=== PATIENT | male | born 1975 | race Caucasian/White ===

== ENCOUNTER 2019-07-01 18:12 | Inpatient (IN) | payer BC ==
[~2019-07-01] VITALS: Ht 193 cm; Wt 140.6 kg
[2019-07-01 18:23] VITALS: BP_SYST 151
--- NOTE | 2019-07-01 18:27 | NUR ---
Patient triaged and placed in waiting room. VSS and patient appears in no acute distress at this time. Accompanied by mother, awaiting available bed, and MD notified of need for MSE.
[2019-07-01 21:30] LABS: BASOPHILS % (AUTO) 0.6 % (0.0-2.0); EOSINOPHILS # (AUTO) 0.1 K/uL (0.0-0.4); EOSINOPHILS % (AUTO) 1.5 % (0.0-4.0); HEMATOCRIT 41.2 % (36-54); HEMOGLOBIN 14.1 g/dL (14.0-18.0); LYMPHOCYTES # (AUTO) 1.7 K/uL (1.0-5.5); LYMPHOCYTES % (AUTO) 23.9 % (20.5-51.5); MEAN CORPUSCULAR HEMOGLOBIN 32 pg (27-31); MEAN CORPUSCULAR HGB CONC 34 % (32-36); MEAN CORPUSCULAR VOLUME 93 fL (79.0-98.0); MONOCYTES # (AUTO) 0.6 K/uL (0.0-1.0); MONOCYTES % (AUTO) 8.4 % (1.7-9.3); NEUTROPHILS # (AUTO) 4.6 K/uL (1.8-7.7); NEUTROPHILS % (AUTO) 65.6 % (40.0-70.0); PLATELET COUNT (AUTO) 330 K/uL (130-430); RED BLOOD CELL COUNT(AUTO) 4.42 MIL/uL (4.2-6.2); RED CELL DISTRIBUTION WIDTH 13.8 % (9.0-15.0)
[2019-07-01 22:08] LABS: ERYTHROCYTE SEDIMENTATION RATE 33 MM/HR (0-15); PROTHROMBIN TIME 9.9 SECS (9.5-12.5)
[2019-07-01 22:11] LABS: CALCIUM 9.1 mg/dL (8.4-11.0); CREATININE 1.15 mg/dL (0.55-1.30); POTASSIUM 3.7 mmol/L (3.5-5.1)
[2019-07-01 22:18] LABS: ALBUMIN 3.6 g/dL (3.4-4.8); TOTAL BILIRUBIN 0.8 mg/dL (0.0-1.0)
--- NOTE | 2019-07-01 23:28 | NUR ---
Pt ambulatory to bed 8 for evaluation
--- NOTE | 2019-07-01 23:45 | NUR ---
Pt came to the ED for upper back pain. Reports that he had an MRI taken yesterday morning and was referred by his primary for oseomyelitis. Pt states pain radiates through his chest. Pt took ibuprofen daily in the morning. No other complaints/injuries noted. Will cont. to monitor.
--- NOTE | 2019-07-01 23:51 | NUR ---
ER at bedside examining patient.
[2019-07-02] MEDS ORDERED: VANCOMYCIN HCL 1,000 MG in NS 250 ML IV ONE ×2
--- NOTE | 2019-07-02 00:43 | NUR ---
# 20 gauge angiocath placed to rac. Use of asceptic technique. Opsite placed over site. Blood return noted. Flushed with 10 cc of normal saline. No evidence of infiltration noted. Patient tolerated well.
--- NOTE | 2019-07-02 01:01 | NUR ---
Pt went to CT scan via wheelchair,tolerated well. Will cont. to monitor.
[2019-07-02] MEDS ORDERED: IOHEXOL 100 ML IV ONE (01:20)
[2019-07-02] MEDS ORDERED: VANCOMYCIN HCL 1000 MG/VIAL IV ONE (02:02)
[2019-07-02] MEDS ORDERED: ACETAMINOPHEN 325 MG TABLET PO PRN (03:15)
[2019-07-02] MEDS ORDERED: cloNIDine HCL 0.1 MG TABLET PO PRN (03:15)
[2019-07-02] MEDS ORDERED: HYDROcodone/ACETAMIN 5-325 MG TAB (NORCO/ VICODIN) PO PRN (03:15)
--- NOTE | 2019-07-02 03:15 | NUR ---
Patient will be admitted to care of Dr. Worthy . Admitted to Med Surg unit. Dx: possible Osteomyelitis of the spine and hypertension. Patient is a med surg hold.
--- NOTE | 2019-07-02 04:00 | NUR ---
PT resting comfortably in bed, no signs of acute distress. Will cont. to monitor.
--- NOTE | 2019-07-02 04:30 | NUR ---
Called [facility] for bed, unable to take pt .
--- NOTE | 2019-07-02 05:00 | NUR ---
PT resting comfortably in bed, no signs of acute distress. Will cont. to monitor.
--- NOTE | 2019-07-02 06:00 | NUR ---
PT resting comfortably in bed, no signs of acute distress. Will cont. to monitor.
--- NOTE | 2019-07-02 07:07 | NUR ---
Report received from TERRY Franco for continuation of care.
--- NOTE | 2019-07-02 07:42 | NUR ---
Unable to obtain medication list.
--- NOTE | 2019-07-02 08:30 | NUR ---
Patient will be admitted to care of Dr. Worthy. Admitted to medsurg unit. Will go to room 124B. Belongings list completed. Complete and up to date summary report printed. SBAR report to be given at bedside with opportunity for questions.
--- NOTE | 2019-07-02 08:39 | NUR ---
[facility] Licensed nurse present. IV present no signs or symptoms of infiltration.
--- NOTE | 2019-07-02 08:57 | NUR ---
ADMISSION NOTE Received patient from ER via [place], received report from Wojciech STEWART. Patient admitted with diagnosis of possible osteomyelitis of spine and hypertension. Patient oriented to hospital routine, call light, toileting and safety-patient verbalized understanding.
[2019-07-02 09:01] VITALS: BP_SYST 134
--- NOTE | 2019-07-02 09:17 | NUR ---
ID consult: Dr. Nolasco at nurses station and aware of consult.
[2019-07-02] MEDS: IBUPROFEN 800 MG TABLET PO PRN (09:51)
--- NOTE | 2019-07-02 10:40 | NUR ---
SEEN AND EXAMINED BY MEAGHAN SPEARS WITH ORDER RECEIVED Per Gaurav Ma to call Dr. Worthy to obtain the order of echocardiogram and cardiac consult. Vik call Dr. Worthy.
[2019-07-02] MEDS ORDERED: HYDR25TA4 PO (10:46)
[2019-07-02] MEDS ORDERED: LISI40TA4 PO (10:46)
[2019-07-02] MEDS ORDERED: TRIM100T11 PO (10:46)
--- NOTE | 2019-07-02 11:52 | NUR ---
RECEIVED THE CALL BACK FROM MARLA KAUR. Reported to Dr. Worthy, per Dr. Nolasco the patient should do echocardiogram and cardiac consult. Dr. Worthy stated stated "the patient come for back pain and osteomyelitis spine, not for the heart and I did not see the patient yet. Just get the result of MRI that took yesterday from PCP."
[2019-07-02 12:05] VITALS: BP_SYST 126
[2019-07-02] MEDS: CEFEPIME 1 GM in D5W 50 ML IV SCH ×2 (12:17→20:48)
--- NOTE | 2019-07-02 12:25 | NUR ---
SEEN AND EXAMINED BY MARLA KAUR WITH ORDER RECEIVED.
--- NOTE | 2019-07-02 14:50 | NUR ---
ROUND Patient resting in the bed and talking via phone. No acute distress. Reminded the patient keep NPO for US of abdomen. Safety measure maintained. Call light within reached. Bed locked in low position, side rails up, bed alarm on. Continue to monitor.
[2019-07-02 16:15] VITALS: BP_SYST 133
--- NOTE | 2019-07-02 16:40 | NUR ---
ROUND Patient resting in the bed. No acute distress. Family at bedside. Safety measure maintained. Call light within reached. Bed locked in low position, side rails up, bed alarm on. Continue to monitor.
[2019-07-02] MEDS: VANCOMYCIN HCL 1,500 MG in NS 250 ML IV SCH (17:09)
--- NOTE | 2019-07-02 17:55 | NUR ---
PORTABLE US OF ABDOMEN DONE AT BEDSIDE.
--- NOTE | 2019-07-02 18:35 | NUR ---
CLOSING NOTE Patient resting in the bed. No acute distress. PRN pain med given as needed with effective. IV intact, infusing Vancomycin well at this time. Safety measure maintained. Call light within reached. Bed locked in low position, side rails up. Refused bed alarm, risk and benefit explained, verbally understanding.
--- NOTE | 2019-07-02 18:55 | NUR ---
PATIENT OFF THE UNIT TO LOBBY WITH FAMILY IN STABLE CONDITION,AMBULATORY IN STEADY GAIT.
--- NOTE | 2019-07-02 19:40 | NUR ---
PATIENT BACK TO UNIT IN STABLE CONDITION. CLIENT ACCOUNT ASSISTANT NURSE AWARE.
--- NOTE | 2019-07-02 19:45 | NUR ---
OPENING NOTE RECEIVED CARE OF PT AND SBAR REPORT. PT IS AAOX4, AMBULATING IN HALLWAY WITH STEADY GAIT. PT BREATHING IS UNLABORED TO ROOM AIR. NO S/S OF ACUTE DISTRESS. PT IS REQUESTING TO BE MOVED INTO A DIFFERENT ROOM. PT ORIENTED TO USE OF CALL LIGHT AND ENCOURAGED TO CALL FOR ANY ASSISTANCE. SAFETY PRECAUTIONS ARE IN PLACE. BED IS LOCKED IN LOWEST POSITION. SIDE RAILS UP X2. CALL LIGHT IS WITH PT. WILL MONITOR.
[2019-07-02 20:00] VITALS: BP_SYST 129
--- NOTE | 2019-07-02 20:48 | NUR ---
SCHEDULED MAXIPIME HUNG. NO S/S OF ADVERSE REACTION NOTED.
--- NOTE | 2019-07-02 21:45 | NUR ---
PT MOVED TO ROOM 119A. ALL BELONGINGS MOVED WITH PT.
[2019-07-03] MEDS: VANCOMYCIN HCL 1,500 MG in NS 250 ML IV SCH ×4 (00:01→23:38)
[2019-07-03] MEDS: IBUPROFEN 800 MG TABLET PO PRN ×2 (00:02→17:05)
--- NOTE | 2019-07-03 00:02 | NUR ---
VANCOMYCIN/MOTRIN SCHEDULED VANCOMYCIN HUNG AND SET TO INFUSE AT ORDERED RATE. NO S/S OF INFILTRATION AT IV SITE. PT GIVEN MOTRIN 800 MG PO FOR BACK PAIN PER REQUEST. MEDICATIONS AND POTENTIAL SIDE EFFECTS DISCUSSED, PT VERBALIZED UNDERSTANDING. PT BROUGHT FRESH ICE WATER PER REQUEST. VSS. SAFETY MAINTAINED. WILL MONITOR.
[2019-07-03 00:40] VITALS: BP_SYST 126
--- NOTE | 2019-07-03 02:00 | NUR ---
SLEEPING PT RESTING IN BED WITH EYES CLOSED. VISIBLE SYMMETRICAL RISE AND FALL OF CHEST TO ROOM AIR. NO S/S OF ACUTE DISTRESS. NO SIGN OF PAIN NOTED, NO FACIAL GRIMACE. SAFETY AND FALL PRECAUTIONS ARE IN PLACE. WILL MONITOR.
--- NOTE | 2019-07-03 06:30 | NUR ---
CLOSING NOTE PT IS RESTING IN BED. PT BREATHING IS UNLABORED TO ROOM AIR. NO S/S OF ACUTE DISTRESS. SAFETY PRECAUTIONS ARE IN PLACE. BED IS LOCKED IN LOWEST POSITION. SIDE RAILS UP X2. CALL LIGHT IS WITH PT. WILL ENDORSE CARE TO DAY SHIFT RN.
[2019-07-03 07:10] LABS: HEPATITIS A AB, IgM Negative (Negative); HEPATITIS B CORE AB, IgM Negative (Negative); HEPATITIS B SURFACE AG Negative (Negative)
[2019-07-03 07:45] VITALS: BP_SYST 116
--- NOTE | 2019-07-03 07:45 | NUR ---
OPENING NOTE Patient resting in the bed. No acute distress. Denied of pain at this time. IV intact to RAC, no redness, no swelling, patent. Discussed the safeyt issue, use call light when needs help, and plan of care, verbally understanding. Safety measure maintained. Call light within reached. Bed locked in low position, side rails up. Refused bed alarm, risk and benefit explained, verbally understanding. Will continue to monitor.
--- NOTE | 2019-07-03 10:25 | NUR ---
PATIENT SITTING IN THE CHAIR AND WATCHING TV IN THE ROOM.
[2019-07-03] MEDS: CEFEPIME 1 GM in D5W 50 ML IV SCH ×2 (10:29→21:32)
[2019-07-03 12:00] VITALS: BP_SYST 122
--- NOTE | 2019-07-03 12:15 | NUR ---
FAMILY VISITED AND HAVE LUNCH WITH THE PATIENT IN THE ROOM.
--- NOTE | 2019-07-03 13:45 | NUR ---
AMBULATED IN THE HALLWAY IN STEADY GAIT.
--- NOTE | 2019-07-03 15:22 | NUR ---
ROUND Patient sitting in the chair and talking to the phone. Safety measure maintained. Continue to monitor.
[2019-07-03 16:00] VITALS: BP_SYST 126
--- NOTE | 2019-07-03 17:15 | NUR ---
SEEN AND EXAMINED BY MARLA MORATAYA. Dr. Foster explained and answered the question to the patient had. Patient verbally understanding.
--- NOTE | 2019-07-03 18:59 | NUR ---
CLOSING NOTE Patient sitting in the chair at bedside. No acute distress. Pain med given as needed. IV intact to RAC, no redness, no swelling, patent. All needs met. Safety measure maintained. Will endorse to night nurse.
--- NOTE | 2019-07-03 19:28 | NUR ---
OPENING NOTE RECEIVED CARE OF PT AND SBAR REPORT. PT IS AAOX4, AMBULATING IN HALLWAY WITH STEADY GAIT. PT BREATHING IS UNLABORED TO ROOM AIR. NO S/S OF ACUTE DISTRESS. POC DISCUSSED WITH PT, PT VERBALIZED UNDERSTANDING. PT ORIENTED TO USE OF CALL LIGHT AND ENCOURAGED TO CALL FOR ANY ASSISTANCE. SAFETY PRECAUTIONS ARE IN PLACE. BED IS LOCKED IN LOWEST POSITION. SIDE RAILS UP X2. CALL LIGHT IS WITH PT. WILL MONITOR.
[2019-07-03 20:00] VITALS: BP_SYST 137
--- NOTE | 2019-07-03 21:32 | NUR ---
MAXIPIME SCHEDULED MAXIPIME ADMINISTERED. MEDICATION DISCUSSED WITH PT. NO S/S OF ADVERSE REACTION.
--- NOTE | 2019-07-03 23:38 | NUR ---
VANCOMYCIN SCHEDULED VANCOMYCIN HUNG AND SET TO INFUSE AT ORDERED RATE. NO S/S OF INFILTRATION AT IV SITE. NO S/S OF ADVERSE REACTION NOTED.
[2019-07-04 00:26] VITALS: BP_SYST 128
--- NOTE | 2019-07-04 01:30 | NUR ---
RN NOTE: PT RESTING IN BED, NO S/S OF ACUTE DISTRESS, BREATHING IS UNLABORED TO ROOM AIR. SAFETY PRECAUTIONS MAINTAINED. WILL MONITOR.
[2019-07-04] MEDS: IBUPROFEN 800 MG TABLET PO PRN (02:32)
--- NOTE | 2019-07-04 02:32 | NUR ---
PAIN/MOTRIN PT GIVEN MOTRIN 800 MG PO FOR BACK PAIN PER REQUEST. MEDICATION AND POTENTIAL SIDE EFFECTS DISCUSSED, PT VERBALIZED UNDERSTANDING. SAFETY MAINTAINED. WILL MONITOR.
--- NOTE | 2019-07-04 07:45 | NUR ---
INITIAL NOTE RECEIVED PT IN BED, PT AAOX4, VERBAL, NO S/S OF DISTRESS OR SOB NOTED, PT HAS NO C/O PAIN AT THIS TIME, PT IN STABLE CONDITION, PT RESTING COMFORTABLY, BED AT LOWEST POSITION, CALL LIGHT WITHIN REACH, WILL CONTINUE TO MONITOR PT FOR ANY CHANGES. FALL AND SAFETY PRECAUTIONS IN PLACE.
[2019-07-04 08:37] VITALS: BP_SYST 135
[2019-07-04] MEDS: CEFEPIME 1 GM in D5W 50 ML IV SCH ×2 (08:49→22:11)
[2019-07-04] MEDS: VANCOMYCIN HCL 1,500 MG in NS 250 ML IV SCH ×2 (08:49→16:21)
--- NOTE | 2019-07-04 10:30 | NUR ---
ROUNDS PT IN BED, NO S/S OF DISTRESS OR SOB NOTED, PT HAS NO C/O PAIN AT THIS TIME, PT IN STABLE CONDITION, FAMILY AT BEDSIDE, WILL CONTINUE TO MONITOR PT FOR ANY CHANGES.
[2019-07-04 12:33] VITALS: BP_SYST 149
--- NOTE | 2019-07-04 12:55 | NUR ---
ROUNDS PT IN BED, NO S/S OF DISTRESS OR SOB NOTED, PT HAS NO C/O PAIN AT THIS TIME, PT IN STABLE CONDITION, FAMILY AT BEDSIDE, WILL CONTINUE TO MONITOR PT FOR ANY CHANGES. PT TALKING ON THE PHONE.
--- NOTE | 2019-07-04 14:30 | NUR ---
ROUNDS PT IN BED, NO S/S OF DISTRESS OR SOB NOTED, PT HAS NO C/O PAIN AT THIS TIME, PT IN STABLE CONDITION, FAMILY AT BEDSIDE, WILL CONTINUE TO MONITOR PT FOR ANY CHANGES. PT TALKING TO VISITOR AND ON THE PHONE.
[2019-07-04 16:20] VITALS: BP_SYST 122
--- NOTE | 2019-07-04 16:39 | NUR ---
Waiter/Waitress Club: met with pt. to conduct a DCPA. SWORD SWALLOWER met with pt. who was sitting in a chair, dressed in street clothes, texting. He stated he was ready to be discharged and asked SWORD SWALLOWER if she can help him. SWORD SWALLOWER stated the will be in to meet with him to go over his medical info. Pt. stated he feels he should be D/Cd and that perhaps he can have an IV at home. He wants to get back to his work. 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 He has family support as he lives with his girlfriend, his dad and his 3 children, ages, 3,5 and 19 Pt. denied feeling like he needs any type of mental health services. pt. denied having any MH dx. He just wants to be d/c to return home. He said life is good and he feels like his pain in currently managed and is just bothered that he is still in the hospital. SWORD SWALLOWER told him to write down any questions he may have for his Doctor. Pt. thought that was a good idea. SWORD SWALLOWER will remain available as needed.
--- NOTE | 2019-07-04 16:54 | NUR ---
MD ROUNDS DR RACQUEL MAGAÑA, AWARE OF PATIENT'S CONDITION, WAITING TO SPEAK TO DR MC FOR POSSIBLE D/C.
--- NOTE | 2019-07-04 18:25 | NUR ---
CLOSING NOTE PT IN BED, PT AAOX4, VERBAL, NO S/S OF DISTRESS OR SOB NOTED, PT HAS NO C/O PAIN AT THIS TIME, PT IN STABLE CONDITION, PT RESTING COMFORTABLY, BED AT LOWEST POSITION, CALL LIGHT WITHIN REACH, WILL ENDORSE CARE OF PT TO INCOMING NURSE. FALL AND SAFETY PRECAUTIONS IN PLACE.
--- NOTE | 2019-07-04 19:25 | NUR ---
Opening Note Received SBAR report and received patient, awake, ambulating in hallway. Patient is AOx4, presently no s/sx of distress, nonlabored breathing on room air. He said he will be in activated sludge attendant / lobby area visiting with family.
[2019-07-04 21:15] VITALS: BP_SYST 134
[2019-07-05] MEDS: VANCOMYCIN HCL 1,500 MG in NS 250 ML IV SCH ×2 (00:03→08:46)
--- NOTE | 2019-07-05 00:12 | NUR ---
Antibiotic Due antibiotic given. Educated on side effects, verbalized understanding. Infusing well.
[2019-07-05 00:30] VITALS: BP_SYST 130
--- NOTE | 2019-07-05 02:32 | NUR ---
Sleeping Patient is resting w/ eyes closed. Symmetrical rise and fall of chest, nonlabored breathing, no s/sx of distress. Call light w/in reach.
--- NOTE | 2019-07-05 04:30 | NUR ---
Awake, restroom Patient is awake and up for use of restroom. Returned to bed and has no further needs. He emphasized that he doesn't want to be awakened, not even for breakfast. He states his will bring him breakfast. He said I woke him up when I did last round and doesn't want people going to his room till after breakfast.
--- NOTE | 2019-07-05 07:30 | NUR ---
closing note Late entry d/t patient care. Endorsed report, patient stable.
--- NOTE | 2019-07-05 07:30 | NUR ---
Opening note patient resting in bed at this time, A/Ox4, no complaints of pain. No SOB. IV patent, intact. No infiltration noted. On safety and aspiration precautions, HOB kept elevated, 3 side rails up, call light within reach. patient in stable condition. Will continue to monitor.
[2019-07-05 08:00] VITALS: BP_SYST 138
[2019-07-05 08:54] LABS: ALBUMIN 3.2 g/dL (3.4-4.8); CALCIUM 8.4 mg/dL (8.4-11.0); CREATININE 0.95 mg/dL (0.55-1.30); POTASSIUM 4.2 mmol/L (3.5-5.1); TOTAL BILIRUBIN 0.7 mg/dL (0.0-1.0)
[2019-07-05] MEDS: IBUPROFEN 800 MG TABLET PO PRN (08:54)
--- NOTE | 2019-07-05 09:00 | NUR ---
medications All morning medications, given as ordered. No adverse side effects noted. Iv patent, intact, and infusing antibiotic as ordered. no infiltration noted.
[2019-07-05] MEDS: CEFEPIME 1 GM in D5W 50 ML IV SCH (10:48)
--- NOTE | 2019-07-05 11:30 | NUR ---
Rounds Patient resting in bed, no complaints of pain. Patient requesting to ambulate in the hallway. patient ambulating in the hallway with steady gait.
--- NOTE | 2019-07-05 12:08 | NUR ---
Case mgt: I clarified Cubacin dose with Dr. Worthy per Dr. Lang's progress notes for home health--Faxing referral for IV abx to [facility] at --I called [facility] at [phone]-s/w Jose-she will give my message re: new referral to [facility]--pt has order for PICC line also. Nurse Quintero updated--pt has [employer] insurance, which might be closed on weekend. NO STEWART Addendum: 07/05/19 at 1252 by Roro Snider RN Rec'd call from [facility]--s/w Brice--he indicates the insurance company is closed on the weekends to verify benefits, so he will follow up on Sunday07/07/19--Brice requested me to fax referral to their local fax#[phone]--referral packet faxed and per Brice, they have nursing available to do the home health as well as pharmacy ( I don't need to fax to separate home health company in addition to [facility]). Nurse Quintero will be updated. NO STEWART
[2019-07-05 13:00] VITALS: BP_SYST 142
--- NOTE | 2019-07-05 13:30 | NUR ---
Dr. Worthy rounds patient resting in bed at this time, explained need for PICC line, and IV antibiotics upon discharge. Patient in stable condition. no other needs at this time.
[2019-07-05 13:54] LABS: PROTHROMBIN TIME 10.1 SECS (9.5-12.5)
--- NOTE | 2019-07-05 15:18 | NUR ---
rounds patient ambulating in the hallway, steady gait. no needs at this time.
[2019-07-05] MEDS ORDERED: *CUBICIN 6 MG/KG Q24H/PHARMACY XX PRN (16:00)
--- NOTE | 2019-07-05 16:47 | NUR ---
Shower patient requesting to shower. MD aware, patient able to shower. Hygiene tools provided. No other needs at this time.
[2019-07-05 17:26] VITALS: BP_SYST 140
[2019-07-05] MEDS: DAPTOmycin 750 MG in NS 50 ML IV SCH (17:53)
[2019-07-05 19:20] VITALS: BP_SYST 143
--- NOTE | 2019-07-05 19:20 | NUR ---
INITIAL NOTES PATIENT IS LAYING IN BED AND STABLE. NO S/S OF RESPIRATORY DISTRESS NOTED. PATIENT SUCCESSFULLY DEMONSTRATES USAGE OF CALL LIGHT AT THIS TIME. BED IS LOCKED AND AT THE LOWEST POSITION. PATIENT REFUSED BED ALARM DESPITE EDUCATIONAL EFFORT. WILL CONTINUE TO MONITOR/EDUCATE. FALL, SAFETY, ASPIRATION, AND RESPIRATORY PRECAUTIONS WILL BE IN PLACE THROUGHOUT THE SHIFT. Addendum: 07/05/19 at 2113 by Travis Franco RN PLAN OF CARE WAS DISCUSSED WITH PATIENT AT THIS TIME.
--- NOTE | 2019-07-05 20:55 | NUR ---
WALKED PATIENT WALKED AROUND THE UNIT AT THIS TIME. PATIENT IS STABLE. NO S/S OF RESPIRATORY DISTRESS NOTED. PATIENT IS CURRENTLY ON THE CHAIR AT THIS TIME. WILL CONTINUE TO MONITOR.
--- NOTE | 2019-07-05 22:55 | NUR ---
ROUNDING/FAMILY MEMBER BY BESIDE PATIENT IS LAYING IN BED AND FAMILY MEMBER IS BY BESIDE. BOTH PATIENT AND FAMILY MEMBERS ARE WATCHING THEIR PHONES. PATIENT IS STABLE. NO S/S OF RESPIRATORY DISTRESS NOTED. CALL LIGHT IN REACH. BED IS LOCKED AND AT THE LOWEST POSITION. WILL CONTINUE TO MONITOR.
[2019-07-06] VITALS (7 sets, daily range): BP systolic 131–143
--- NOTE | 2019-07-06 00:55 | NUR ---
ROUNDING PATIENT IS LAYING IN BED AND FAMILY MEMBER IS BY BESIDE. THEY ARE CURRENTLY WATCHING TV ON THEIR PHONES. PATIENT IS STABLE. NO S/S OF RESPIRATORY DISTRESS NOTED. CALL LIGHT IN REACH. BED IS LOCKED AND AT THE LOWEST POSITION. WILL CONTINUE TO MONITOR.
[2019-07-06] MEDS: IBUPROFEN 800 MG TABLET PO PRN (01:33)
--- NOTE | 2019-07-06 02:55 | NUR ---
ROUNDING PATIENT IS SLEEPING AND STABLE. NO S/S OF RESPIRATORY DISTRESS NOTED. CALL LIGHT IN REACH. BED IS LOCKED AND AT THE LOWEST POSITION. WILL CONTINUE TO MONITOR.
--- NOTE | 2019-07-06 04:55 | NUR ---
ROUNDING PATIENT IS RESTING IN BED AND STABLE. NO S/S OF RESPIRATORY DISTRESS CALL LIGHT IN REACH. BED IS LOCKED AND AT THE LOWEST POSITION. WILL CONTINUE TO MONITOR.
--- NOTE | 2019-07-06 06:55 | NUR ---
CLOSING NOTES PATIENT IS SLEEPING IN BED AND STABLE. NO S/S OF RESPIRATORY DISTRESS NOTED. CALL LIGHT IN REACH. BED IS LOCKED, ALARMED, AND AT THE LOWEST POSITION. FALL, SAFETY, ASPIRATION, AND RESPIRATORY PRECAUTIONS PLACED THROUGHOUT THE SHIFT. WILL CONTINUE TO MONITOR UNTIL AM REPORT IS GIVEN TO AM NURSE BY BEDSIDE.
--- NOTE | 2019-07-06 07:30 | NUR ---
Opening note Patient resting in bed at this time, A/Ox4, no complaints of pain. No SOB. PICC line patent, intact. No infiltration noted. On safety and aspiration precautions, HOB kept elevated, 3 side rails up, call light within reach. patient in stable condition. Will continue to monitor.
--- NOTE | 2019-07-06 09:20 | NUR ---
rounds linens changed, refilled water pitcher. breakfast tray removed.
--- NOTE | 2019-07-06 09:31 | NUR ---
Discharge Planning Received a call from Leon STEWART. Patient is anxious to go home. It seems the home health agency, [facility] at [phone], cannot verify insurance coverage until Sunday to begin services. I called [facility] and left a voicemail. Addendum: 07/06/19 at 1032 by Ramandeep Rouse LCSW [place] back from [place] with [facility]. They cannot guarantee home health services until they can confirm with the insurance. They open at 8:30 am and will begin working on it right away on 07/07/19. Notified Leon STEWART
--- NOTE | 2019-07-06 11:38 | NUR ---
rounds Patient ambulating in the hallway, noted with steady gait. no other needs at this time.
--- NOTE | 2019-07-06 13:30 | NUR ---
rounds Patient has picc line in place, requesting to remove peripheral IV. removed old peripheral IV, dressing in place. PICC line intact.
--- NOTE | 2019-07-06 15:30 | NUR ---
ambulating patient ambulating in the hallway, with steady gait. No other needs at this time.
[2019-07-06] MEDS: DAPTOmycin 750 MG in NS 50 ML IV SCH (17:11)
--- NOTE | 2019-07-06 17:30 | NUR ---
Rounds patient sitting up in be at this time. PICC line patent intact, and infusing antibiotics as ordered. no adverse side effects.
--- NOTE | 2019-07-06 18:12 | NUR ---
Closing note Patient resting in bed at this time, A/Ox4, no complaints of pain. No SOB. PICC line patent, intact. No infiltration noted. On safety and aspiration precautions, HOB kept elevated, 3 side rails up, call light within reach. patient in stable condition. all needs met.
--- NOTE | 2019-07-06 19:15 | NUR ---
change of sift.pt.presents quiescent affect;calm,resting,viewing tv programming via telephone.pt.presents picc line;location; rt.bicept x2 lumens.intact.iv lock.general status stable.respiratory status stable;unlabored@room air.pt.capable to reposition self.call light/telephone w/in reach of the pt.
--- NOTE | 2019-07-06 20:00 | NUR ---
pt.assessed.v/s assessed;values w/in normal limits.no c/o pain,nausea.picc line assessed;intact;patent;iv lock.i have measured the circumference of the rt.bicept.i have apprised the pt.that i may provide snacks/beverages w/in the shift.no requests posited @this hour. general status stable.respiratory status stable;unlabored;02-sun%=98%.call light/telephone w/in reach of the pt. Addendum: 07/07/19 at 0342 by Jose Miguel Alfaro RN i have placed the nsg/pt alert sign;picc line:rt.arm@the hob.i have provided the indication for the sign to the pt. Addendum: 07/07/19 at 0353 by Jose Miguel Alfaro RN i have placed the nsg/pt alert sign@the hob;re:picc line.i have provided the indication for the sign to the pt.
--- NOTE | 2019-07-06 22:00 | NUR ---
pt.assessed.pt.presents quiescent affect;calm,resting,viewing tv programming via telephone no c/o pain,nausea.no requests posited@this hour. general status stable.respiratory status stable;unlabored.pt.capable to reposition self.call light/telephone w/in the reach of the pt.
[2019-07-07] VITALS: BP_SYST 133
--- NOTE | 2019-07-07 | NUR ---
pt.assessed.v/s assessed;values w/in normal limits.no c/o pian,.nausea.no requests posited@this hour.general status stable.respiratory status stable.unlabored.pt.viewing tv programming via telephone.pt.capable to reposition self.call light/telephone w/in the reach of the pt.
--- NOTE | 2019-07-07 00:30 | NUR ---
pt.had requested medication;pain.,i have administered motrin:800mg po 1 tab.per the pt's reference.to f/u re;pain medication efficacy per pain mgx protocol. i have reviewed the cubicin;abx;ivpb.i have printed the medication info.i have provided the mediation info to the pt.
[2019-07-07] MEDS: IBUPROFEN 800 MG TABLET PO PRN (00:39)
--- NOTE | 2019-07-07 02:00 | NUR ---
pt.assessed.pt.presents quiescent affect;calm,somnolent.general status stable.respiratory status stable;unlabored.pt.capable to reposition self.call light/telephone w/in reach of the pt.
--- NOTE | 2019-07-07 03:58 | NUR ---
pt.assessed.pt.presents quiescent affect;calm,somnolent.general status stable.respiratory status stable;unlabored. pt.capable to reposition self.call light/telephone placed w/in reach of the pt.
--- NOTE | 2019-07-07 06:30 | NUR ---
pt.assessed.pt.presents quiescent affect;calm,resting.viewing programming via telephone.no c/o pain,nausea. pt.capable to reposition self.call light/telephone w/in reach of the pt.
[2019-07-07 08:00] VITALS: BP_SYST 138; BP_SYST 147
--- NOTE | 2019-07-07 08:00 | NUR ---
RN INITIAL NOTES RECEIVED PATIENT IN BED LYING ANXIOUSLY IRRITATED BEC HE SAID ITS BEEN TAKING SO SLOW TO DISCHARGE HIM , RESP EVEN AND UNLABORED, PATIENT EXPLAINED WILL FOLLOW UP WITH ., SPOKE WITH DR Kem CLEMENT INFORMED PATIENT FRUSTRATION , SAID TO DC PATIENT WITH SAME MEDS AND TO FOLLOW UP WITH THE MILK DRYING MACHINE OPERATOR TO MAKE SURE PATIENT HAS IV ATB TO BE GIVEN TONIGHT , EXPLLAINED TO PATIENT THE IMPORTANCE OF THE IV ATB , BUT PATIENT IS REALLY FRUSTRATED , PATIENT CALLED CM AND HIS INSURANCE ., WILL FOLLOW UP
--- NOTE | 2019-07-07 08:59 | NUR ---
PAGED PAGED MARLA REESE AT [phone] SPOKE WITH [facility].
--- NOTE | 2019-07-07 10:00 | NUR ---
DISCHARGE ORDER PER CM PATIENT IS OK TO BE DC HOME HEALTH IS SET UP WITH HIS ATV IV DOSE FOR TONIGHT , PICC LINE INTACT AND FLUSHED
[2019-07-07 10:08] VITALS: BP_SYST 138
--- NOTE | 2019-07-07 11:00 | NUR ---
D/C Patient Patient given medication reconciliation form and D/C instructions. Exit Care provided. Patient verbalized understanding about his continuity of care via Picc line for his IV atb , home healt will follow with his care and will call pcp for follow up within this week, Cubicin IV atb will be delivered today for todays dose, patient also will follow up with Infectious Dr for the completion of treatnment . MD discussed with patient the results and treatment provided. Ambulatory with steady gait for discharge to home. Patient in stable condition, ID band removed. PICC line intact, flushed and dressing applied, no active bleeding. Rx of given and Home health will follow up . Patient educated on pain management. All belongings sent with patient.
--- NOTE | 2019-07-07 11:11 | NUR ---
JALYN PLANNING This am called & spoke w Jessica @ [facility]), ph [phone], will f/u w if have auth from insurance. Received call back from Jessica that verified insurance & will accept/follow pt for IV abx & HH nursing. [facility] pt has 10% copay & will call to discuss w pt. Spoke w pt @ bedside, just got off phone w [facility] aware of copy & agreeable. [facility] has appt for 5pm today to start abx today. Gave pt [facility] contact ph#. Updated pt's nurse.
--- NOTE | 2019-07-11 14:26 | NUR ---
Discharge Follow Up Phone Call Phoned patient, . Patient stated he was doing well. He has been receiving home health services and IV antibiotics. He has made his follow up appointments. Patient requested his medical records for his follow up appointment with Dr Rangel, neuro. Transferred the call to Medical Records.
== END 2019-07-07 11:15 | disposition home health service (06) | DRG 540 ==
LOC: SED 18:12 → SMU 07-02 03:07
PROVIDERS: ADMIT Internal Medicine; ATTEND Internal Medicine
PROC: 02HV33Z Insertion of Infusion Device into Superior Vena Cava, Percutaneous Approach (ICD-10-PCS; principal; 2019-07-05)
PROC: B548ZZA Ultrasonography of Superior Vena Cava, Guidance (ICD-10-PCS; 2019-07-05)
DX: M86.8X8 Other osteomyelitis, other site (principal); R78.81 Bacteremia; M46.44 Discitis, unspecified, thoracic region; F10.10 Alcohol abuse, uncomplicated; G47.30 Sleep apnea, unspecified; G89.29 Other chronic pain; I10 Essential (primary) hypertension; Z80.42 Family history of malignant neoplasm of prostate; Z79.899 Other long term (current) drug therapy
CPT/HCPCS: 36415; 71045; 72128; 72132-TC; 76700-TC; 80053; 80202-TC; 83605; 84484; 85025; 85610-TC; 85651-TC; 85730-TC; 86140; 86480; 86635; 86705; 86709; 87040-TC; 87340; 93306; 96365; 96366; 99285; A5061; C1751; J0692; J0878; J3370; J7050; J7060; Q9967

== ENCOUNTER 2024-03-22 07:23 | Emergency (ER) | payer BC ==
[~2024-03-22] VITALS: Ht 182.9 cm; Wt 138.3 kg
[~2024-03-22 07:23] MED LIST: HYDR25TA4 PO; LISI40TA20 PO
[2024-03-22 07:31] VITALS: BP_SYST 131; PULSE 67; RESP 16; TEMP 97.4; O2SAT 97
[2024-03-22 08:55] LABS: BILIRUBIN,URINE NEGATIVE (NEGATIVE); BLOOD, URINE NEGATIVE (NEGATIVE); CLARITY/URINE CLEAR (CLEAR); COLOR,URINE YELLOW (YELLOW); GLUCOSE,URINE NEGATIVE (NEGATIVE); KETONES,URINE NEGATIVE (NEGATIVE); LEUKOCYTE ESTERASE ,URINE NEGATIVE (NEGATIVE); NITRITE, URINE NEGATIVE (NEGATIVE); PROTEIN URINE NEGATIVE (NEGATIVE); UROBILINOGEN,URINE 0.2 (0.2-1.0)
[2024-03-22 09:34] LABS: BASOPHILS % (AUTO) 0.3 % (0.0-2.0); EOSINOPHILS # (AUTO) 0.1 K/uL (0.0-0.4); EOSINOPHILS % (AUTO) 1.3 % (0.0-4.0); HEMATOCRIT 38.2 % (36-54); HEMOGLOBIN 12.8 g/dL (14.0-18.0); LYMPHOCYTES # (AUTO) 1.2 K/uL (1.0-5.5); LYMPHOCYTES % (AUTO) 16.2 % (20.5-51.5); MEAN CORPUSCULAR HEMOGLOBIN 31 pg (27-31); MEAN CORPUSCULAR HGB CONC 34 % (32-36); MEAN CORPUSCULAR VOLUME 92 fL (79.0-98.0); MONOCYTES % (AUTO) 14.7 % (1.7-9.3); NEUTROPHILS # (AUTO) 4.8 K/uL (1.8-7.7); NEUTROPHILS % (AUTO) 67.5 % (40.0-70.0); PLATELET COUNT (AUTO) 376 K/uL (130-430); RED BLOOD CELL COUNT(AUTO) 4.14 MIL/uL (4.2-6.2); RED CELL DISTRIBUTION WIDTH 13.2 % (9.0-15.0); WHITE BLOOD COUNT (AUTO) 7.1 K/uL (4.8-10.8)
[2024-03-22 09:51] LABS: PROTHROMBIN TIME 10.7 SECS (9.5-12.5)
[2024-03-22] MEDS ORDERED: MAGN296S8 PO (10:14)
[2024-03-22] MEDS ORDERED: ALPR0.5T PO (10:14)
[2024-03-22] MEDS: KETOROLAC TROMETHAMINE 60 MG/2 ML VIAL IM ONE (10:19)
[2024-03-22 10:20] LABS: ALBUMIN 3.6 g/dL (3.4-4.8); BILIRUBIN,DIRECT 0.3 mg/dL (0.0-0.3); CALCIUM 9.3 mg/dL (8.4-11.0); CREATININE 0.95 mg/dL (0.55-1.30); POTASSIUM 4.4 mmol/L (3.5-5.1); TOTAL BILIRUBIN 1.4 mg/dL (0.0-1.0); TOTAL PROTEIN, SERUM 7.8 g/dL (6.4-8.3)
[2024-03-22 10:29] VITALS: BP_SYST 134; PULSE 70; RESP 18; TEMP 97.4; O2SAT 97
== END 2024-03-22 10:18 | disposition home or self-care (01) ==
LOC: SED 07:23
DX: M54.50 Low back pain, unspecified (principal); R10.9 Unspecified abdominal pain; R14.0 Abdominal distension (gaseous); I10 Essential (primary) hypertension; Z79.899 Other long term (current) drug therapy; Z79.2 Long term (current) use of antibiotics
CPT/HCPCS: 99285; 74176; 80076; 80048; 81001; 82150; 83690; 85025; 85610; 85730; 36415; 96372; 83605; 82397; 81003; J1885